=== PATIENT | female | born 1985 | race American Indian/Alaskan Native ===

== ENCOUNTER 2018-05-21 14:19 | Emergency (ER) | payer MEDICAID ==
--- NOTE | 2018-05-21 16:47 | EDM.PDOCBH ---
ED HPI GENERAL MEDICAL PROBLEM - General Chief Complaint: Behavioral/Psych Stated Complaint: EVAL FOR DETOX Time Seen by Provider: 05/21/18 15:30 Source of Information: Reports: Patient History Limitations: Reports: No Limitations - History of Present Illness INITIAL COMMENTS - FREE TEXT/NARRATIVE: This lady has a history of drug abuse. She has a bed over at [facility] but she sent over here for medical clearance. She has a history of methamphetamine use and hasn't had any for 4 days. She however has used heroin and her last dose was yesterday. She's used it 4 times in the past week. She has had typical opiate withdrawal symptoms in the past. She said that earlier today she took a Suboxone tablet. She doesn't feel like she's having any withdrawal symptoms right now. She denies any recent alcohol. She denies any chance of says she is on her menstrual period now - Related Data Allergies Allergy/AdvReac Type Severity Reaction Status Date / Time duloxetine [From Cymbalta] Allergy Other Verified 05/21/18 14:47 Sulfa (Sulfonamide Allergy Cannot Verified 05/21/18 14:46 Antibiotics) Remember Home Meds: Home Meds FLUoxetine [PROzac] 40 mg PO BEDTIME 05/21/18 [History] Ibuprofen 800 mg PO DAILY 05/21/18 [History] Mirtazapine 45 mg PO DAILY 05/21/18 [History] Past Medical History - Past Health History Medical/Surgical History: Denies Medical/Surgical History FR[employer]MER History: Reports: Psychiatric History: Reports: Addiction - Past Surgical History Female Surgical History: Reports: Section Social & Family History - Tobacco Use Smoking Status *Q: Current Every Day Smoker Years of Tobacco use: 20 Packs/Tins Daily: 0.5 - Caffeine Use Caffeine Use: Reports: Coffee, Soda, Tea - Recreational Drug Use Recreational Drug Use: Yes Drug Use in Last 12 Months: Yes Recreational Drug Type: Reports: Heroin, Marijuana/Hashish, Methamphetamine Recreational Drug Use Frequency: Weekly ED ROS GENERAL - Review of Systems Review Of Systems: See Below Constitutional: Reports: No Symptoms HEENT: Reports: No Symptoms Respiratory: Reports: No Symptoms Cardiovascular: Reports: No Symptoms, Palpitations GI/Abdominal: Reports: No Symptoms : Reports: No Symptoms Musculoskeletal: Reports: No Symptoms Skin: Reports: No Symptoms ED EXAM, BEHAVIORAL HEALTH - Physical Exam Exam: See Below Exam Limited By: No Limitations General Appearance: Alert, WD/WN, No Apparent Distress Eye Exam: Bilateral Eye: Normal Inspection Throat/Mouth: Normal Oropharynx Head: Atraumatic Neck: Normal Inspection Respiratory/Chest: Lungs Clear Cardiovascular: Regular Rate, Rhythm, No Murmur GI/Abdominal: Non-Tender Extremities: Normal Inspection Neurological: Alert, Normal Mood/Affect, CN II-XII Intact, Normal Cognition Psychiatric: Alert, Normal Affect Skin Exam: Warm, Dry COURSE, BEHAVIORAL HEALTH COMP - Course Vital Signs: Last Vital Signs Temp 35.5 C 05/21/18 14:48 Pulse 121 H 05/21/18 14:48 Resp 18 05/21/18 14:48 BP 141/76 H 05/21/18 14:48 Pulse Ox 98 05/21/18 14:48 Orders, Labs, Meds: Laboratory Tests 05/21/18 05/21/18 Range/Units 15:41 15:44 Urine Opiates Screen Presumptive positive H (NEGATIVE) Ur Oxycodone Screen Negative (NEGATIVE) Urine Methadone Screen Negative (NEGATIVE) Ur Propoxyphene Screen Negative (NEGATIVE) Ur Barbiturates Screen Negative (NEGATIVE) Ur Tricyclics Screen Negative (NEGATIVE) Ur Phencyclidine Scrn Negative (NEGATIVE) Ur Amphetamine Screen Presumptive positive H (NEGATIVE) U Methamphetamines Scrn Presumptive positive H (NEGATIVE) Urine MDMA Screen Presumptive positive H (NEGATIVE) U Benzodiazepines Scrn Presumptive positive H (NEGATIVE) U Cocaine Metab Screen Negative (NEGATIVE) U Marijuana (THC) Screen Presumptive positive H (NEGATIVE) Ethyl Alcohol < 3 mg/dL Re-Assessment/Re-Exam: Labs were reviewed. This patient is medically cleared for admission to a drug and alcohol rehabilitation facility that is [facility] Departure - Departure Time of Disposition: 16:46 Disposition: Home, Self-Care 01 Condition: Fair Clinical Impression: Polydrug dependence including opioid type drug with episodic abuse with complication - Discharge Information Referrals: PCP,None [Primary Care Provider] - Additional Instructions: You are being released from the emergency department. He should continue taking her regular medications. You're medically cleared for admission to [facility] for treatment for drug abuse
== END 2018-05-21 17:02 | disposition home or self-care (01) ==
LOC: JP.ED 14:19
DX: F11.20 Opioid dependence, uncomplicated (principal); F17.210 Nicotine dependence, cigarettes, uncomplicated; Z88.8 Allergy status to other drugs, medicaments and biological substances; Z88.2 Allergy status to sulfonamides; Z79.899 Other long term (current) drug therapy
CPT/HCPCS: 36415; 80305; 99284; G0480